=== PATIENT | male | born 2000 | race Hispanic/Latino ===

== ENCOUNTER 2020-10-19 19:21 | Emergency (ER) | payer OTHER ==
[2020-10-19] MEDS ORDERED: IBUPROFEN 600 MG TABLET ONE (19:52)
== END 2020-10-19 20:27 | disposition home or self-care (01) ==
LOC: EDH 19:21
DX: S93.402A Sprain of unspecified ligament of left ankle, initial encounter (principal); J45.909 Unspecified asthma, uncomplicated; Z98.890 Other specified postprocedural states; Z88.1 Allergy status to other antibiotic agents; W20.8XXA Other cause of strike by thrown, projected or falling object, initial encounter; Y93.89 Activity, other specified; Y92.89 Other specified places as the place of occurrence of the external cause; Y99.8 Other external cause status
CPT/HCPCS: 73610